=== PATIENT | male | born 1950 | race Caucasian/White ===

== ENCOUNTER 2019-02-27 13:59 | Inpatient (IN) | payer OTHER ==
[~2019-02-27] VITALS: Ht 182.9 cm; Wt 101.2 kg
--- NOTE | 2019-02-27 13:59 | NUR ---
Placed in room 08 . Placed on monitor car operator, blood pressure machine and pulse oximeter. To gown for exam. Side rails up. Report given to Dwight IBANEZ.
--- NOTE | 2019-02-27 14:00 | NUR ---
Pt placed in negative pressure room
[2019-02-27 14:02] VITALS: BP_SYST 137
--- NOTE | 2019-02-27 14:33 | NUR ---
PATIENT PRESENTS TO THE ER WITH HX OF 'ABNORMAL CXR' SUSPICIOUS FOR TUBERCULOSIS; PATIENT PLACED IN NEGATIVE PRESSURE ROOM #8 AT 1400 AND ON ANTIQUE REPAIRER/SAO2 AND N-95 MASK PLACED ON PATIENT WELL ALL PERSONS ENTERING ROOM #8; PATIENT DENIES ANY SYMPTOMS AND IS NOT CONGESTED; PATIENT HAS JAUNDICED SKIN TONE AND BILATERAL SCLERA; NO TRAUMA, NO OTHER REMARKABLE S/S
--- NOTE | 2019-02-27 14:36 | NUR ---
ERMD EVALUATION AT 1420
--- NOTE | 2019-02-27 15:12 | NUR ---
REASSESSMENT; PATIENT IS UNCHANGED; IV PLACED #24 LEFT WRIST WITHOUT INCIDENT; DISPOSITION PENDING
[2019-02-27 15:26] LABS: HEMATOCRIT 39.5 % (36-54); HEMOGLOBIN 13.7 g/dL (14.0-18.0); MEAN CORPUSCULAR HEMOGLOBIN 37 pg (27-31); MEAN CORPUSCULAR HGB CONC 35 % (32-36); MEAN CORPUSCULAR VOLUME 106 fL (79.0-98.0); PLATELET COUNT (AUTO) 224 K/uL (130-430); RED BLOOD CELL COUNT(AUTO) 3.74 MIL/uL (4.2-6.2); RED CELL DISTRIBUTION WIDTH 15.5 % (9.0-15.0); WHITE BLOOD COUNT (AUTO) 9.7 K/uL (4.8-10.8)
[2019-02-27 15:53] LABS: CALCIUM 8.8 mg/dL (8.4-11.0); CREATININE 0.7 mg/dL (0.55-1.30); POTASSIUM 3.8 mmol/L (3.5-5.1)
[2019-02-27 15:57] LABS: ALBUMIN 2.6 g/dL (3.4-4.8); TOTAL BILIRUBIN 9.2 mg/dL (0.0-1.0)
[2019-02-27 16:13] LABS: BAND % (MANUAL) 10 % (0-6)
[2019-02-27 16:14] LABS: ATYPICAL LYMPHOCYTES % 0 % (0-0); BASOPHILS % (MANUAL) 0 % (0-2); EOSINOPHILS % (MANUAL) 1 % (0-7); LYMPHOCYTES % (MANUAL) 19 % (20-46); METAMYELOCYTES % 1 % (0-0)
[2019-02-27] MEDS ORDERED: NACL 0.9% 1,000 ML IV ONE (16:15)
[2019-02-27 16:18] LABS: MONOCYTES % (MANUAL) 6 % (0-11); MYELOCYTES % 1 % (0-0)
--- NOTE | 2019-02-27 16:24 | NUR ---
REASSESSMENT; DISPOSITION PENDING; PATIENT REMAINS SEDATE, UNCHANGED AND ASYMPTOMATIC
[2019-02-27] MEDS ORDERED: LACTULOSE 20 GM/30 ML UDC PO ONE (17:15)
[2019-02-27] MEDS ORDERED: PIPERACILLIN/TAZO 3.375/DEX-IS 50 ML IV ONE (17:45)
--- NOTE | 2019-02-27 17:48 | NUR ---
REASSESSMENT; PATIENT REMAINS SEDATE AND ASYMPTOMATIC; DISPOSITION TO TELE PENDING FOR ROOM ASSIGNMENT
[2019-02-27 17:53] LABS: CLARITY/URINE CLEAR (CLEAR); COLOR,URINE AMBER (YELLOW)
[2019-02-27 17:54] LABS: BILIRUBIN,URINE 2+ (NEGATIVE); BLOOD, URINE NEGATIVE (NEGATIVE); GLUCOSE,URINE NEGATIVE (NEGATIVE); KETONES,URINE NEGATIVE (NEGATIVE); LEUKOCYTE ESTERASE ,URINE NEGATIVE (NEGATIVE); NITRITE, URINE NEGATIVE (NEGATIVE); PROTEIN URINE NEGATIVE (NEGATIVE); UROBILINOGEN,URINE >=8 (0.2-1.0)
[2019-02-27 18:08] LABS: BACTERIA,URINE FEW /HPF (None Seen); MUCUS,URINE None Seen /LPF (None Seen); RBC,URINE NONE SEEN /HPF (0-3); WBC,URINE 0-3 /HPF (0-3)
[2019-02-27] MEDS ORDERED: PIPERACILLIN/TAZOBACTAM 3.375 GM/VIAL (ZOSYN) IV ONE (18:08)
--- NOTE | 2019-02-27 18:37 | NUR ---
PREPARATIONS TO ADMIT; PATIENT TRANSPORTED TO TELE VIA ACLS AND REPORT GIVEN AT BEDSIDE; PATIENT IS UNCHANGED WITH PATENT IV AND N-95 FACE MASK
--- NOTE | 2019-02-27 18:40 | NUR ---
ADMISSION NOTE Received patient from ER via gurney. Patient admitted with diagnosis of UPPER LOBE INFILTRATE/PNEUMONA. Patient is awake, alert, oriented X 4. Patient oriented to hospital room, call light, toileting, pain management and safety-teach back done. Patient informed that ANNE will be his registered nurses and that their room number is 133A. Personal belongings checked and Belongings List documented. Call light within reach.
[2019-02-27 18:45] VITALS: BP_SYST 133
--- NOTE | 2019-02-27 19:27 | NUR ---
CLOSING NOTE PATIENT RESTING IN BED. STABLE. DENIES ANY PAIN. ROOM AIR. NO ACUTE DISTRESS. NO SOB. RESPIRATION EVEN AND UNLABORED. SKIN WARM AND DRY TO TOUCH. IV INTACT AND PATENT. BED IN LOW AND LOCKED POSITION. SIDERAIL UPX 2. BED ALARM ON. CALL LIGHT IN REACH. ENDORSED CARE TO MECCA IBANEZ
--- NOTE | 2019-02-27 19:45 | NUR ---
ROUNDS PATIENT IN BED, WATCHING TV, NOT IN DISTRESS, VITALS STABLE. DENIES ANY PAIN AND DISCOMFORT AT THIS TIME. ASSESSMENT GARCIA AD DOCUMENTED. SEE FLOWSHEET. NEEDS ATTENDED TO. SAFETY MEASURES MAINTAINED. CALL LIGHT PLACED WITHIN REACH.
[2019-02-27] MEDS: cefTRIAXone 1 GM in D5W 50 ML IV SCH (20:01)
[2019-02-27] MEDS: NACL 0.9% 1,000 ML IV SCH (20:04)
--- NOTE | 2019-02-27 21:17 | NUR ---
MEDICATION DUE MEDICATION GIVEN ORDERED, TOLERATED WELL. WILL CONTINUE TO MONITOR.
--- NOTE | 2019-02-28 00:13 | NUR ---
PATIENT RESTING: Patient resting quietly. No acute distress noted. Vital signs within normal range.
[2019-02-28 00:36] VITALS: BP_SYST 140
--- NOTE | 2019-02-28 01:53 | NUR ---
DR. CHAVEZ PAGED AND TALKED TO DR. CHAVEZ, PATIENT WANTS ATIVAN AND PAIN MEDICATION. NEW ORDERS GIVEN. WILL CONTINUE TO MONITOR PATIENT.
[2019-02-28] MEDS: LORazepam 1 MG TABLET PO PRN ×4 (02:28→21:33)
--- NOTE | 2019-02-28 04:03 | NUR ---
Consultation Paged Reason for Consultation: ID Was consult called: Y Person who was notified: Agata Consulting Physician: Fermín Cosme Right Of Way Cutter Ordering Physician: Ayde Nelson Face Sheet was faxed to [phone] Addendum: 02/28/19 at 0411 by Zarina Morgan MT/ Ordering Physician: Dr. Fuentes
--- NOTE | 2019-02-28 04:20 | NUR ---
PATIENT RESTING: Patient resting quietly. No acute distress noted. Vital signs within normal range.
[2019-02-28] MEDS: NACL 0.9% 1,000 ML IV SCH ×2 (06:20→08:42)
--- NOTE | 2019-02-28 06:52 | NUR ---
CLOSING NOTES PATIENT AWAKE, NO COMPLAINTS AT THIS TIME, VITALS STABLE. ALL NEEDS ATTENDED TO. SAFETY AND FALL MEASURES MAINTAINED. CALL LIGHT PLACED WITHIN REACH.
--- NOTE | 2019-02-28 07:01 | NUR ---
Nutrition Update Rajiv Scale 15 noted. Pt admitted for upper lobe infiltrate/pneumonia. Diet: regular BMI: 30.2 kg/m2 RD to follow per nutrition care standards.
--- NOTE | 2019-02-28 07:19 | NUR ---
Opening Note received bedside SBAR report from night worker RN, patient resting in bed, respirations even and unlabored on room air, no acute distress noted, educated patient on use of call light and asked to call for assistance, patient verbalized understanding, call light in reach, bed in low and locked position, bed alarm on.
[2019-02-28 08:00] VITALS: BP_SYST 142
--- NOTE | 2019-02-28 09:55 | NUR ---
RN Rounds patient resting in bed, respirations even and unlabored on room air, patient reports anxiety is controlled, patient denies any pain, no acute distress noted.
--- NOTE | 2019-02-28 11:36 | NUR ---
Physical Therapy physical therapy at bedside working with patient, patient tolerating well.
--- NOTE | 2019-02-28 11:41 | NUR ---
Pulmo consult called: for Dr. Lee, regarding RUL pneumonia, ordered by Amy Cosme, spoke with Tamar.
[2019-02-28 12:54] VITALS: BP_SYST 141
--- NOTE | 2019-02-28 13:55 | NUR ---
RN Rounds patient resting in bed, no acute distress noted, patient denies any pain, respirations even and unlabored on room air.
--- NOTE | 2019-02-28 15:46 | NUR ---
RN Rounds patient resting in bed, respirations even and unlabored on room air, updated patient on plan of care for today, patient verbalized understanding.
--- NOTE | 2019-02-28 16:27 | NUR ---
District Representative: Met with pt. to conduct a DCPA. DAIRY DEPARTMENT MANAGER suited up as pt. may have TB. Pt. was sitting watching television. He seemed bothered ,but willing to participate in the interview. Pt. had a different address than what is listed on the face sheet. His address is [address] in [place] [id number]. DAIRY DEPARTMENT MANAGER will send a notification to Brina Perez who can make the updates. Pt. stated he lives there alone, but had a hadoop architect person who cares for him at home. He has a walker and a wheelchair and his bathroom is set up for a handicapped person. He stated, " I want to get out of here" in an upset tone. DAIRY DEPARTMENT MANAGER thanked him. Pt. stated he took a couple of steps today with PT. DAIRY DEPARTMENT MANAGER will remain available as needed. Addendum: 02/28/19 at 1636 by Yamilex Rivero DAIRY DEPARTMENT MANAGER District Representative: follow up DAIRY DEPARTMENT MANAGER looked up where pt. came in from . he came in from [facility] acute. DAIRY DEPARTMENT MANAGER will not request address for home to be changed.
--- NOTE | 2019-02-28 17:58 | NUR ---
RN Rounds patient sitting up in bed eating dinner, tolerating well, no acute distress noted, patient denies any pain.
[2019-02-28] MEDS: cefTRIAXone 1 GM in D5W 50 ML IV SCH (18:37)
[2019-02-28 18:55] VITALS: BP_SYST 137
--- NOTE | 2019-02-28 19:35 | NUR ---
Closing Note bedside SBAR report given to receiving RN, patient resting in bed, respirations even and unlabored on room air, educated patient on use of call light, patient verbalized understanding, call light in reach, bed in low and locked position, bed alarm on, care endorsed to paper roller RN, isolation precautions in place.
[2019-02-28 20:00] VITALS: BP_SYST 152
--- NOTE | 2019-02-28 20:00 | NUR ---
ASSUMED CARE. RECEIVED ALERT,ORIENTED. AFEBRILE, NOT IN ACUTE DISTRESS. DENIES ANY PAIN OR DISCOOMFORT AT THIS TIME. WITH IV FLUID NS INFUSING AT 75 ML/HR VIA LEFT WRIST #24 IV LINE. SAO2=98% ON ROOM AIR. CONTROLLED A.FIB. ON THE MONITOR. AT BEDSIDE EVALUATING PT. AIRBORNE RESPIRATORY PRECAUTION FOR TB BEING OBSERVED. VS STABLE, WILL CONTINUE TO MONITOR. NEEDS ATTENDED.
--- NOTE | 2019-02-28 21:33 | NUR ---
IV FLUID DISCONTINUED. COMPLAINED OF FEELING ANXIOUS AND JITTERY. ATIVAN 1 MG PO GIVEN REQUESTED.
[2019-03-01] VITALS: BP_SYST 144
--- NOTE | 2019-03-01 | NUR ---
AWAKE, NOT IN ANY KIND OF DISTRESS. NO PAIN OR DISCOMFORT NOTED. PT.VERBALIZED FEELING MORE RELAXED AT THIS TIME. SIDE RAILS UP, CALL LIGHT WITHIN REACH. KEPT WARM AND COMFORTABLE. VS REMAIN STABLE. WILL CONTINUE TO MONITOR. NEEDS ATTENDED.
--- NOTE | 2019-03-01 02:23 | NUR ---
COMPLAINED OF FEELING ANXIOUS AND JITTERY. ATIVAN NOT YET DUE.
[2019-03-01] MEDS: LORazepam 1 MG TABLET PO PRN ×4 (03:33→22:00)
--- NOTE | 2019-03-01 03:33 | NUR ---
ATIVAN 1 MG PO GIVEN REQUESTED FOR ANXIETY.
--- NOTE | 2019-03-01 06:00 | NUR ---
ASLEEP, NO PAIN OR DISCOMFORT NOTED AT THIS TIME.
[2019-03-01 06:59] LABS: HEMATOCRIT 35.4 % (36-54); HEMOGLOBIN 12.4 g/dL (14.0-18.0); MEAN CORPUSCULAR HEMOGLOBIN 37 pg (27-31); MEAN CORPUSCULAR HGB CONC 35 % (32-36); MEAN CORPUSCULAR VOLUME 107 fL (79.0-98.0); PLATELET COUNT (AUTO) 202 K/uL (130-430); RED BLOOD CELL COUNT(AUTO) 3.32 MIL/uL (4.2-6.2); RED CELL DISTRIBUTION WIDTH 15.8 % (9.0-15.0); WHITE BLOOD COUNT (AUTO) 9.2 K/uL (4.8-10.8)
--- NOTE | 2019-03-01 07:05 | NUR ---
ENDORSED CARE TO GRIS IBANEZ STABLE.
--- NOTE | 2019-03-01 07:10 | NUR ---
OPENING NOTE PATIENT AWAKE AND ALERT IN BED. IV LINE INTACT AND PATENT, NO SIGNS OF INFILTRATION. NO ACUTE DISTRESS NOTED. ALL NEEDS MET. CALL LIGHT IN REACH. FALL AND ASPIRATION AND ISOLATION PRECAUTIONS IN PLACE. CONTINUE TO MONITOR.
[2019-03-01 07:20] LABS: ALBUMIN 2.4 g/dL (3.4-4.8); CALCIUM 8.3 mg/dL (8.4-11.0); CREATININE 0.56 mg/dL (0.55-1.30); POTASSIUM 3.7 mmol/L (3.5-5.1); TOTAL BILIRUBIN 5.9 mg/dL (0.0-1.0)
[2019-03-01 08:00] VITALS: BP_SYST 155
[2019-03-01 08:49] LABS: BAND % (MANUAL) 8 % (0-6); BASOPHILS % (MANUAL) 0 % (0-2); EOSINOPHILS % (MANUAL) 0 % (0-7); LYMPHOCYTES % (MANUAL) 12 % (20-46); MONOCYTES % (MANUAL) 7 % (0-11)
--- NOTE | 2019-03-01 09:56 | NUR ---
PRN MEDS MEDS ADMINISTERED ORDERED PER MD. EDUCATION GIVEN. TOLERATED WELL. NO ACUTE DISTRESS NOTED. ALL NEEDS MET. CALL LIGHT IN REACH. FALL, ASPIRATION, AND ISOLATION PRECAUTIONS IN PLACE. CONTINUE TO MONITOR.
--- NOTE | 2019-03-01 11:00 | NUR ---
FAMILY VISITED AT BEDSIDE. ISOLATION PRECAUTIONS IN PLACE. TEACHING DONE ON ISOLATION PRECAUTIONS.
[2019-03-01 12:55] VITALS: BP_SYST 150
--- NOTE | 2019-03-01 13:00 | NUR ---
ROUNDS PT AWAKE AND ALERT IN BED WATCHING TELEVISION. NONLABORED BREATHING NOTED. NO ACUTE DISTRESS NOTED. ALL NEEDS MET. CALL LIGHT IN REACH. FALL AND ASPIRATION PRECAUTIONS IN PLACE. CONTINUE TO MONITOR.
[2019-03-01] MEDS: MORPHINE 2 MG/ML INJ. SYRINGE IVP PRN (13:24)
--- NOTE | 2019-03-01 15:00 | NUR ---
ROUNDS PT RESTING IN BED. CHEST RISE AND FALL NOTED. NONLABORED BREATHING NOTED. NO ACUTE DISTRESS NOTED. ALL NEEDS MET. CALL LIGHT IN REACH. FALL AND ASPIRATION PRECAUTIONS IN PLACE. CONTINUE TO MONITOR.
--- NOTE | 2019-03-01 16:15 | NUR ---
SEEN BY DR. CHAVEZ'S TEST KITCHEN HOME ECONOMIST AT BEDSIDE.
[2019-03-01 16:50] VITALS: BP_SYST 137
--- NOTE | 2019-03-01 18:18 | NUR ---
ROUNDS PT AWAKE, ALERT, AND ORIENTED IN BED. NO ACUTE DISTRESS NOTED. ALL NEEDS MET. CALL LIGHT IN REACH. FALL, ASPIRATION, AND ISOLATION PRECAUTIONS IN PLACE. CONTINUE TO MONITOR.
[2019-03-01] MEDS: cefTRIAXone 1 GM in D5W 50 ML IV SCH (18:45)
--- NOTE | 2019-03-01 18:47 | NUR ---
CLOSING NOTE PT AWAKE, ALERT, AND ORIENTED. WATCHING TELEVISION IN BED. NONLABORED BREATHING NOTED. NO ACUTE DISTRESS NOTED. IV LINE INTACT AND PATENT. NO SIGNS OF INFILTRATION. IV ABX FLUIDS FLOWING ORDERED. EDUCATION GIVEN. TOLERATING WELL. BED IN LOWEST AND LOCKED POSITION. BED ALARM ON. ALL NEEDS MET. CALL LIGHT IN REACH. FALL, ASPIRATION, AND ISOLATION PRECAUTIONS IN PLACE. HOB ELEVATED. WILL ENDORSE TO NOC NURSE.
[2019-03-01] MEDS ORDERED: BISACODYL 5 MG TABLET.DR (DULCOLAX) PO PRN (19:00)
[2019-03-01] MEDS ORDERED: ACETAMINOPHEN 650 MG/20.3 ML UDC GT PRN (19:00)
[2019-03-01] MEDS ORDERED: BISA5TAB10 PO (19:07)
[2019-03-01] MEDS ORDERED: LACT10SO7 PO (19:07)
[2019-03-01] MEDS ORDERED: PRO40 PO (19:07)
[2019-03-01] MEDS ORDERED: HYDR-4039 PO (19:07)
[2019-03-01] MEDS ORDERED: DILT30TA36 PO (19:07)
[2019-03-01] MEDS ORDERED: ATEN-168 PO (19:07)
[2019-03-01] MEDS ORDERED: ACET-2165 PO ×2 (19:07)
--- NOTE | 2019-03-01 19:25 | NUR ---
OPENING NOTE RECEIVED CARE OF PT AND SBAR REPORT. PT IS AAOX4, RESTING IN BED. IV LINE INTACT AND PATENT, NO SIGNS OF INFILTRATION. BREATHING IS UNLABORED, NO ACUTE DISTRESS NOTED. POC DISCUSSED WITH PT. CALL LIGHT IN REACH. FALL AND ASPIRATION AND ISOLATION PRECAUTIONS IN PLACE. WILL CONTINUE TO MONITOR.
[2019-03-01 20:00] VITALS: BP_SYST 150
[2019-03-01] MEDS: LACTULOSE 20 GM/30 ML UDC PO SCH (21:00)
[2019-03-01] MEDS: DILTIAZEM HCL 30 MG TABLET PO SCH (21:58)
[2019-03-01] MEDS: hydrALAZINE HCL 25 MG TABLET PO SCH (21:59)
--- NOTE | 2019-03-01 22:00 | NUR ---
ANXIETY/ATIVAN PT REPORTING ANXIETY. ATIVAN GIVEN PRN ORDERED. MEDICATION ACTIONS AND POTENTIAL SIDE EFFECTS DISCUSSED, PT VERBALIZED UNDERSTANDING. NO S/S OF ACUTE DISTRESS. SAFETY MAINTAINED. CALL LIGHT IS WITH PT. ISOLATION PRECAUTIONS IN PLACE. WILL MONITOR.
[2019-03-02 00:04] VITALS: BP_SYST 148
--- NOTE | 2019-03-02 00:19 | NUR ---
PAGED: PAGED DR. CHAVEZ REGARDING ORDERS.
--- NOTE | 2019-03-02 00:20 | NUR ---
SPOKE TO DR. CHAVEZ REGARDING PT'S REPORT OF HEARTBURN. NEW ORDERS RECEIVED. WILL CARRY OUT.
[2019-03-02] MEDS: CALCIUM CARBONATE 500 MG/ TAB.CHEW PO PRN ×3 (00:32→16:21)
--- NOTE | 2019-03-02 00:32 | NUR ---
INDIGESTION/TUMS PT REPORTING HEARTBURN. TUMS ADMINISTERED ORDERED PRN.
[2019-03-02] MEDS: LORazepam 1 MG TABLET PO PRN ×3 (04:01→22:13)
[2019-03-02] MEDS: hydrALAZINE HCL 25 MG TABLET PO SCH ×3 (06:21→22:12)
[2019-03-02] MEDS: PANTOPRAZOLE SODIUM 40 MG TAB PO SCH (06:22)
[2019-03-02] MEDS: DILTIAZEM HCL 30 MG TABLET PO SCH ×3 (06:22→22:13)
--- NOTE | 2019-03-02 06:34 | NUR ---
ANXIETY/ATIVAN PT REPORTING ANXIETY. ATIVAN GIVEN PRN ORDERED. MEDICATION ACTIONS AND POTENTIAL SIDE EFFECTS DISCUSSED, PT VERBALIZED UNDERSTANDING. NO S/S OF ACUTE DISTRESS. SAFETY MAINTAINED. CALL LIGHT IS WITH PT. ISOLATION PRECAUTIONS IN PLACE. WILL MONITOR. Addendum: 03/02/19 at 0635 by Ruthie Sandoval RN SALOMON: TIME WAS AT 0400
--- NOTE | 2019-03-02 06:36 | NUR ---
OPENING NOTE PT IS AAOX4, RESTING IN BED. IV LINE INTACT AND PATENT, NO SIGNS OF INFILTRATION. BREATHING IS UNLABORED, NO ACUTE DISTRESS NOTED.CALL LIGHT IN REACH. FALL AND ASPIRATION AND ISOLATION PRECAUTIONS IN PLACE. WILL ENDORSE TO DAY SHIFT RN. Addendum: 03/03/19 at 0301 by Ruthie Sandoval RN AMKENYATTA: CLOSING NOTE
--- NOTE | 2019-03-02 07:20 | NUR ---
Opening Note Received bedside report from endorsing RN for continuation of care. Received patient resting in bed, arousable to voice and denies any SOB or pain. No signs or symptoms of acute distress noted. Bed locked in lowest position, bed alarm on, and call light within reach. Education provided on use of call light and patient verbalized understanding. Fall and safety precautions in place.
[2019-03-02 08:00] VITALS: BP_SYST 137
[2019-03-02] MEDS: LACTULOSE 20 GM/30 ML UDC PO SCH ×4 (08:40→20:06)
[2019-03-02] MEDS: ATENOLOL 50 MG TABLET (TENORMIN) PO SCH (08:41)
--- NOTE | 2019-03-02 09:15 | NUR ---
Becca PRODUCT DEVELOPMENT ENGINEER in to see patient. No new orders received.
[2019-03-02 12:41] VITALS: BP_SYST 131
--- NOTE | 2019-03-02 12:45 | NUR ---
Patient c/o indigestion. PRN medication for indigestion administered per MD order.
--- NOTE | 2019-03-02 15:00 | NUR ---
Patient resting in bed, watching TV, denies any SOB or pain. No signs or symptoms of acute distress noted.
[2019-03-02 17:34] VITALS: BP_SYST 116
--- NOTE | 2019-03-02 18:16 | NUR ---
Patient sitting up in bed eating dinner, denies any SOB or pain. No signs or symptoms of acute distress noted.
--- NOTE | 2019-03-02 19:05 | NUR ---
Endorsement Endorsed bedside report to oncoming RN using SBAR approach for continuation of care.
[2019-03-02] MEDS: cefTRIAXone 1 GM in D5W 50 ML IV SCH (19:07)
--- NOTE | 2019-03-02 19:26 | NUR ---
OPENING NOTE RECEIVED CARE OF PT AND SBAR REPORT. PT IS AAOX4, RESTING IN BED. IV LINE INTACT AND PATENT, NO SIGNS OF INFILTRATION. BREATHING IS UNLABORED, NO ACUTE DISTRESS NOTED. POC DISCUSSED WITH PT. CALL LIGHT IN REACH. FALL, ASPIRATION, AND ISOLATION PRECAUTIONS IN PLACE. WILL CONTINUE TO MONITOR.
[2019-03-02 20:00] VITALS: BP_SYST 127
[2019-03-02] MEDS ORDERED: ONDANSETRON HCL 4 MG/2 ML VIAL IVP PRN (20:00)
--- NOTE | 2019-03-02 20:06 | NUR ---
NAUSEA/ZOFRAN PT REPORTING NAUSEA, ZOFRAN GIVEN PRN ORDERED. PT TOLERATED WELL.
[2019-03-02 22:51] VITALS: BP_SYST 139
--- NOTE | 2019-03-03 00:15 | NUR ---
RN ROUNDS PT AWAKE AND ALERT IN BED WATCHING TELEVISION. NONLABORED BREATHING NOTED. NO ACUTE DISTRESS NOTED. ALL NEEDS MET. CALL LIGHT IN REACH. SAFETY AND ISOLATION PRECAUTIONS IN PLACE. CONTINUE TO MONITOR.
--- NOTE | 2019-03-03 02:10 | NUR ---
RESTING: PT RESTING IN BED, NO S/S O ACUTE DISTRESS, BREATHING IS UNLABORED TO ROOM AIR. NO SIGN OF PAIN OR DISCOMFORT. SAFETY AND ISOLATION PRECAUTIONS MAINTAINED. WILL MONITOR.
[2019-03-03] MEDS: LORazepam 1 MG TABLET PO PRN ×4 (04:16→23:57)
--- NOTE | 2019-03-03 04:21 | NUR ---
ATIVAN GIVEN FOR ANXIETY ORDERED PRN.
[2019-03-03] MEDS: PANTOPRAZOLE SODIUM 40 MG TAB PO SCH (06:15)
[2019-03-03] MEDS: DILTIAZEM HCL 30 MG TABLET PO SCH ×3 (06:15→23:58)
[2019-03-03] MEDS: hydrALAZINE HCL 25 MG TABLET PO SCH ×4 (06:15→23:57)
--- NOTE | 2019-03-03 06:30 | NUR ---
CLOSING NOTE PT IS AAOX4, RESTING IN BED. IV LINE INTACT AND PATENT, NO SIGNS OF INFILTRATION. BREATHING IS UNLABORED, NO ACUTE DISTRESS NOTED. POC DISCUSSED WITH PT. CALL LIGHT IN REACH. FALL, ASPIRATION, AND ISOLATION PRECAUTIONS IN PLACE. WILL ENDORSE PT CARE TO DAY SHIFT RN.
[2019-03-03 08:00] VITALS: BP_SYST 102
--- NOTE | 2019-03-03 08:00 | NUR ---
OPENING NOTES: RECEIVED PATIENT FROM NOC RN. PATIENT AAOX4, NO ACUTE SIGNS OF RESP DISTRESS, NO SOB. BREATHING EVEN AND UNLABORED. IV INTACT AND PATENT, NO REDNESS/SWELLING/PAIN TO SITE. BED AT LOWEST POSITION. CALL LIGHT IN REACH. CONTINUE TO MONITOR.
[2019-03-03] MEDS: ATENOLOL 50 MG TABLET (TENORMIN) PO SCH (08:46)
[2019-03-03] MEDS: LACTULOSE 20 GM/30 ML UDC PO SCH ×3 (08:46→20:30)
--- NOTE | 2019-03-03 10:00 | NUR ---
ROUNDING: NO CHANGE IN PATIENT STATUS. BED AT LOWEST POSITION. CALL LIGHT IN REACH. CONTINUE TO MONITOR.
[2019-03-03] MEDS: metroNIDAZOLE 500 mg/NS 100 ML IV SCH ×2 (10:15→23:58)
--- NOTE | 2019-03-03 11:11 | NUR ---
Kathleen Christensen called, left message for Leah.
--- NOTE | 2019-03-03 12:00 | NUR ---
ROUNDING: PATIENT TOOK AM MEDS, TOLERATED WELL. DENIES ANY PAIN. ALL NEEDS MET. BED AT LOWEST POSITION. CALL LIGHT IN REACH. CONTINUE TO MONITOR.
[2019-03-03 12:55] VITALS: BP_SYST 131
--- NOTE | 2019-03-03 14:00 | NUR ---
ROUNDING: PATIENT RESTING IN BED WITH EYES CLOSED. NO ACUTE SIGNS OF RESP DISTRESS, NO SOB. BREATHING EVEN AND UNLABORED. BED AT LOWEST POSITION. CALL LIGHT IN REACH. CONTINUE TO MONITOR.
--- NOTE | 2019-03-03 14:15 | NUR ---
S.T. SWALLOW EVAL SWALLOW EVAL COMPLETED. PT PRESENTS W/ FUNCTIONAL OROPHARYNGEAL SWALLOW W/ NO S/S OF ASPIRATION. REC: CONTINUE REGULAR DIET. THIN LIQUIDS OK. NURSE RESSIE NOTIFIED. [id number] CH G8997 CH G8998 NOMS LEVEL 7
--- NOTE | 2019-03-03 15:02 | NUR ---
Discharge Planning: DCP faxed pt packet to [facility] (f [phone] p [phone]) Per Katherine pt will go to Rm 15A
--- NOTE | 2019-03-03 16:00 | NUR ---
ROUNDING: PATIENT RESTING WITH EYES CLOSED. DENIES ANY PAIN. ALL NEEDS MET. NO ACUTE SIGNS OF RESP DISTRESS NOTED. NO SOB. BREATHING EVEN AND UNLABORED. BED AT LOWEST POSITION. CALL LIGHT IN REACH. CONTINUE TO MONITOR.
[2019-03-03 16:57] VITALS: BP_SYST 130
--- NOTE | 2019-03-03 18:03 | NUR ---
ROUNDING: PATIENT RESTING COMFORTABLY. NO CHANGE IN PATIENT STATUS. DENIES PAIN. BED AT LOWEST POSITION. CALL LIGHT IN REACH. CONTINUE TO MONITOR. WILL ENDORSE PLAN OF CARE TO NOC RN.
--- NOTE | 2019-03-03 19:30 | NUR ---
OPENING NOTE Patient is resting in bed, no signs of distress at this time. Airborne precautions maintained. call light within reach, bed alarm on, fall/safety precautions in place. Patient states no pain at this time. IV site, patent, dressings c/d/i. Will continue to monitor.
[2019-03-03 20:00] VITALS: BP_SYST 129
[2019-03-03] MEDS: cefTRIAXone 1 GM in D5W 50 ML IV SCH (20:14)
[2019-03-04] VITALS: BP_SYST 122
[2019-03-04] MEDS: LORazepam 1 MG TABLET PO PRN ×3 (06:16→18:50)
[2019-03-04] MEDS: DILTIAZEM HCL 30 MG TABLET PO SCH ×3 (06:17→22:17)
[2019-03-04] MEDS: PANTOPRAZOLE SODIUM 40 MG TAB PO SCH (06:17)
[2019-03-04] MEDS: hydrALAZINE HCL 25 MG TABLET PO SCH ×3 (06:17→22:16)
--- NOTE | 2019-03-04 07:30 | NUR ---
CLOSING NOTE Patient is resting in bed, no signs of distress at this time. Airborne precautions maintained throughout shift. call light within reach, bed alarm on, fall/safety precautions in place. IV site, patent, dressings c/d/i. All needs met throughout shift, will endorse care to oncoming shift.
[2019-03-04 07:46] LABS: BASOPHILS # (AUTO) 0.1 K/uL (0.0-0.2); BASOPHILS % (AUTO) 1.3 % (0.0-2.0); EOSINOPHILS # (AUTO) 0.1 K/uL (0.0-0.4); EOSINOPHILS % (AUTO) 1.1 % (0.0-4.0); HEMATOCRIT 34.7 % (36-54); HEMOGLOBIN 12.1 g/dL (14.0-18.0); LYMPHOCYTES # (AUTO) 1.1 K/uL (1.0-5.5); LYMPHOCYTES % (AUTO) 11.2 % (20.5-51.5); MEAN CORPUSCULAR HEMOGLOBIN 38 pg (27-31); MEAN CORPUSCULAR HGB CONC 35 % (32-36); MEAN CORPUSCULAR VOLUME 108 fL (79.0-98.0); MONOCYTES # (AUTO) 0.7 K/uL (0.0-1.0); MONOCYTES % (AUTO) 6.8 % (1.7-9.3); NEUTROPHILS # (AUTO) 8.1 K/uL (1.8-7.7); NEUTROPHILS % (AUTO) 79.6 % (40.0-70.0); PLATELET COUNT (AUTO) 269 K/uL (130-430); RED BLOOD CELL COUNT(AUTO) 3.21 MIL/uL (4.2-6.2); RED CELL DISTRIBUTION WIDTH 15.4 % (9.0-15.0); WHITE BLOOD COUNT (AUTO) 10.2 K/uL (4.8-10.8)
[2019-03-04 07:56] LABS: ALBUMIN 2.4 g/dL (3.4-4.8); CALCIUM 8.5 mg/dL (8.4-11.0); CREATININE 0.61 mg/dL (0.55-1.30); POTASSIUM 3.7 mmol/L (3.5-5.1)
[2019-03-04 08:10] LABS: TOTAL BILIRUBIN 4.7 mg/dL (0.0-1.0)
[2019-03-04] MEDS: ATENOLOL 50 MG TABLET (TENORMIN) PO SCH (08:17)
[2019-03-04] MEDS: LACTULOSE 20 GM/30 ML UDC PO SCH ×4 (08:17→21:00)
--- NOTE | 2019-03-04 08:19 | NUR ---
Routine Scheduled medication given per order. Patient resting comfortably in bed with no distress noted. Patient stable at this time.
[2019-03-04] MEDS: MORPHINE 2 MG/ML INJ. SYRINGE IVP PRN ×2 (08:31→20:39)
[2019-03-04 08:35] VITALS: BP_SYST 123
--- NOTE | 2019-03-04 08:35 | NUR ---
Routine Patient medicated for 7/10 abdominal pain. Patient stable at this time.
[2019-03-04] MEDS: metroNIDAZOLE 500 mg/NS 100 ML IV SCH ×2 (09:44→22:21)
--- NOTE | 2019-03-04 11:06 | NUR ---
PHYSICAL THERAPY CO-SIGN The Physical Therapy Progress Notes documented by Planning Division Superintendent have been reviewed. Reviewed/Co-Signed by: Rigoberto Sims PT Documentation Done by: WALTER MALIN PTA Addendum: 03/04/19 at 1107 by Rigoberto Sims PT Amended: Links added.
--- NOTE | 2019-03-04 11:30 | NUR ---
PAGED RE: ORDERS
[2019-03-04 12:11] VITALS: BP_SYST 118
--- NOTE | 2019-03-04 13:05 | NUR ---
Routine Scheduled medications given; PRN ativan po given as well. Patient resting comfortably in bed with no complaint of any pain. Patient stable.
--- NOTE | 2019-03-04 14:15 | NUR ---
Routine Patient watching TV with no distress noted. Patient stable at this time.
--- NOTE | 2019-03-04 14:30 | NUR ---
Discharge Planning: DCP faxed updated [facility] (f [phone] p [phone]) Per Katherine pt will go to Rm 15A, patient has ambulance on [facility] ([phone]) made nurse aware. Patient needs a DC order, doctor stated may DC. Addendum: 03/04/19 at 1500 by Kellen VIEYRA Patient packet taken to nurse station
--- NOTE | 2019-03-04 14:45 | NUR ---
Routine I spoke to Dr. Fuentes and he stated that the patient has to go back to [facility]. I also spoke to , Marii at . Per , patient does not want to go back to [facility]. She stated that the patient stated that he wanted to come home to finalize some business and to drink. Marii stated that the patient will force her to come and pick him up tomorrow even though he is unable to walk. She also stated that she cannot adequately care for him at home, even if a caregiver comes to assist during the day. I called Kellen, tour coordinator at [phone] and relayed this information to her.
[2019-03-04 16:10] VITALS: BP_SYST 97
[2019-03-04 16:11] VITALS: BP_SYST 129
--- NOTE | 2019-03-04 17:24 | NUR ---
Routine Patient resting comfortably and quietly in bed with no complaint of any pain. Emptied 400 mls of clear, silvia urine from urinal. Patient stable at this time.
[2019-03-04] MEDS: cefTRIAXone 1 GM in D5W 50 ML IV SCH (18:37)
--- NOTE | 2019-03-04 18:40 | NUR ---
Routine Scheduled IV abx given per order. Patient stable at this time. Requested ativan. Advised can administer in 10 mins.
[2019-03-04] MEDS: CALCIUM CARBONATE 500 MG/ TAB.CHEW PO PRN (18:50)
--- NOTE | 2019-03-04 18:53 | NUR ---
Routine Patient resting in bed with no complaint of pain. Requested ativan and tums. PRN meds given per order. Patient stable throughout shift.
--- NOTE | 2019-03-04 19:30 | NUR ---
OPENING NOTE Patient is resting in bed, no signs of distress at this time. Airborne precautions has been discontinued. call light within reach, urinal at bedside, bed alarm refused after explaining to patient risks and importance of bed alarm. Fall/safety precautions in place. Patient states no pain at this time. IV site, patent, dressings c/d/i. Received report that patient does not want to return to [facility], but and Dr. Fuentes would like to continue the discharge planning to [facility]. Will continue to monitor.
--- NOTE | 2019-03-04 19:45 | NUR ---
SPOKE TO DIMA RN, FROM [facility], , TO ASK IF PATIENT WILL BE DISCHARGED TONIGHT OR TOMORROW. HAVE CONFIRMED THAT PATIENT HAS ROOM 15 BED A AVAILABLE AND HAVE EXPLAINED THAT THERE IS NO DISCHARGE ORDER FROM THE DOCTOR AND PATIENT DOES NOT WANT TO RETURN TO [facility] BUT THE FAMILY AND DR. CHAVEZ HAS DC PLANNING FOR [facility].
[2019-03-04 20:00] VITALS: BP_SYST 112
--- NOTE | 2019-03-04 21:40 | NUR ---
Patient provided PRN pain medication, no signs of distress observed. Will continue to monitor.
--- NOTE | 2019-03-04 23:40 | NUR ---
Patient is resting, watching television. No distress observed. Will continue to monitor.
[2019-03-05] VITALS: BP_SYST 124
[2019-03-05] MEDS: LORazepam 1 MG TABLET PO PRN ×3 (01:03→14:17)
--- NOTE | 2019-03-05 02:01 | NUR ---
Patient is resting, Ativan PRN provided. Patient states pain is 0/10, emptied urinal. Patient is watching television comfortably. Will continue to monitor.
--- NOTE | 2019-03-05 04:30 | NUR ---
Patient is resting, no signs of acute respiratory distress observed. Urinal has been emptied. Will continue to monitor.
[2019-03-05] MEDS: PANTOPRAZOLE SODIUM 40 MG TAB PO SCH (06:05)
[2019-03-05] MEDS: DILTIAZEM HCL 30 MG TABLET PO SCH ×2 (06:05→14:17)
[2019-03-05] MEDS: hydrALAZINE HCL 25 MG TABLET PO SCH ×2 (06:06→14:16)
--- NOTE | 2019-03-05 06:52 | NUR ---
CLOSING NOTE Patient is resting in bed, no signs of distress at this time. Call light within reach, urinal at bedside, bed alarm refused after explaining to patient risks and importance of bed alarm. Fall/safety precautions in place. Patient states no pain at this time. IV site, patent, dressings c/d/i. Will endorse care to oncoming shift that patient's room is available at [facility]. All needs met throughout shift. Addendum: 03/05/19 at 0735 by Paty Quan RN Ativan provided to patient per patient request. Tolerated well.
[2019-03-05] MEDS: CALCIUM CARBONATE 500 MG/ TAB.CHEW PO PRN ×2 (08:43→19:00)
[2019-03-05] MEDS: ATENOLOL 50 MG TABLET (TENORMIN) PO SCH (08:43)
[2019-03-05 08:45] VITALS: BP_SYST 111
--- NOTE | 2019-03-05 08:45 | NUR ---
Routine Scheduled medications and prn tums given per order. Patient resting comfortably in bed with no complaint of pain at this time. Patient stable.
[2019-03-05] MEDS: LACTULOSE 20 GM/30 ML UDC PO SCH ×3 (08:46→14:18)
--- NOTE | 2019-03-05 11:20 | NUR ---
P.T. NOTES AFTER MULTIPLE ATTEMPTS PATIENT REFUSED TO BE SEEN BY P.T., PER PATIENT MAY BE D/C TODAY AND WOULD LIKE TO GET SOME REST.
[2019-03-05] MEDS: metroNIDAZOLE 500 mg/NS 100 ML IV SCH (11:25)
[2019-03-05 12:40] VITALS: BP_SYST 141
[2019-03-05] MEDS: MORPHINE 2 MG/ML INJ. SYRINGE IVP PRN ×2 (12:59→19:00)
--- NOTE | 2019-03-05 13:00 | NUR ---
Routine Patient medicated for 710 abdominal pain. Patient stable; resting quietly in bed.
[2019-03-05 13:49] VITALS: BP_SYST 141
--- NOTE | 2019-03-05 14:09 | NUR ---
Called report Called report to MARCELLE Brunson at [facility] [phone]. Patient will go to Room 15A.
--- NOTE | 2019-03-05 14:19 | NUR ---
Routine Scheduled medications given and prn ativan as well. Patient stable at this time.
--- NOTE | 2019-03-05 15:12 | NUR ---
Discharge Planning: JOHNNYP faxed updated order with IV medication to [facility] (f [phone] p [phone]) DCP made Carolina aware patient discharging today.
[2019-03-05 16:07] VITALS: BP_SYST 135
--- NOTE | 2019-03-05 16:54 | NUR ---
DC Planning: s/w patient at bedside re: transferring to [facility] this evening after last dose of IV ABX and after dinner. The pt made aware of the plan going to snf for iv abx and PT. The pt agreed with the transfer today after dinner. TITI Alcocer and MARCELLE Caldwell made aware. Addendum: 03/05/19 at 1708 by Maddison Calhoun RN >> [facility] with [facility] # [phone]. picker tender time at 1830. -- MARCELLE Caldwell made aware, dc package placed in [facility].
[2019-03-05] MEDS: cefTRIAXone 1 GM in D5W 50 ML IV SCH (17:54)
--- NOTE | 2019-03-05 17:59 | NUR ---
Routine IV abx given per order. Patient stable at this time.
--- NOTE | 2019-03-05 19:10 | NUR ---
Discharge Patient transferred in stable condition via ambulance to [facility] with 22 gauge IV in left forearm. Patient will go to Room 15A.
--- NOTE | 2019-03-06 08:00 | NUR ---
PHYSICAL THERAPY CO-SIGN The Physical Therapy Progress Notes documented by Retail Specialist have been reviewed. Reviewed/Co-Signed by: Rigoberto Sims PT Documentation Done by: VIDAL GARCIA PTA Addendum: 03/06/19 at 0801 by Rigoberto Sims PT Amended: Links added.
== END 2019-03-05 19:13 | DRG 871 ==
LOC: SED 13:59 → STU 16:57
PROVIDERS: ADMIT Internal Medicine; ATTEND Internal Medicine
DX: A41.9 Sepsis, unspecified organism (principal); J18.9 Pneumonia, unspecified organism; E87.1 Hypo-osmolality and hyponatremia; E72.20 Disorder of urea cycle metabolism, unspecified; K21.9 Gastro-esophageal reflux disease without esophagitis; E66.9 Obesity, unspecified; F41.9 Anxiety disorder, unspecified; I10 Essential (primary) hypertension; I48.91 Unspecified atrial fibrillation; K70.10 Alcoholic hepatitis without ascites; K70.30 Alcoholic cirrhosis of liver without ascites; Z90.49 Acquired absence of other specified parts of digestive tract; Z68.30 Body mass index [BMI] 30.0-30.9, adult; Z88.2 Allergy status to sulfonamides
CPT/HCPCS: 36415; 71045; 71250-TC; 80053; 81000-TC; 82140-TC; 83605; 85007; 85025; 85027; 86480; 86710; 87040-TC; 87081; 87086; 92610-GN; 96361; 96365; 97110-GP; 97116-GP; 97530-GP; 99285; G0378; J0696; J2270; J2405; J2543; J3490; J7030; J7060